=== PATIENT | male | born 1985 ===

== ENCOUNTER 2017-12-16 03:45 | Emergency (ER) | payer SELFPAY ==
[2017-12-16 04:08] VITALS: RESP 16
[2017-12-16] MEDS ORDERED: DiphenhydrAMINE 50 mg/ml Inj IVP STA (04:41)
[2017-12-16] MEDS ORDERED: DiphenhydrAMINE 50 mg/ml Inj ONE (05:05)
[2017-12-16 05:28] LABS: BASO % 0.4 % (0.0-2.0); EOS # 0.1 K/uL (0.0-0.7); EOS % 1.3 % (0.0-4.0); HEMOGLOBIN 15.3 g/dL (12.0-18.0); LYMPH # 1.8 K/uL (1.0-4.3); LYMPH % 30.1 % (20.0-40.0); MEAN CELL VOLUME 88.6 fl (80.0-94.0); MEAN CORPUSCULAR HGB CONC 33.9 g/dL (33.0-37.0); MEAN PLATELET VOLUME 8.7 fl (7.2-11.7); MONO # 0.3 K/uL (0.0-0.8); MONO % 5.5 % (0.0-10.0); NEUT # 3.7 K/uL (1.8-7.0); NEUT % 62.7 % (50.0-75.0); NRBC % 0.1 % (0.0-0.0); RBC 5.09 Mil/uL (4.40-5.90); RED CELL DISTRIBUTION WIDTH 13.8 % (11.5-14.5); WHITE BLOOD COUNT 5.9 K/uL (4.8-10.8)
--- NOTE | 2017-12-16 05:38 | ED PDOC ---
HPI: Allergic Reaction Time Seen by Provider: 12/16/17 03:51 Chief Complaint (Nursing): Palpitations Chief Complaint (Provider): Allergic Reaction History Per: Patient History/Exam Limitations: no limitations Onset/Duration Of Symptoms: Days (x1) Possible Cause: Unknown. denies: Medication, Food Associated Symptoms: Swelling Additional Complaint(s): 32 year old male presents to ED with complaints of right sided facial swelling x1 day and has no past medical history. Denies taking any new medications or exposure to new foods or lotions. (+) SOB. (-) fever or chest pain. PCP: [facility] Past Medical History Reviewed: Historical Data, Nursing Documentation, Vital Signs Vital Signs: Last Vital Signs Temp 98.4 F 12/16/17 04:04 Pulse 71 12/16/17 04:04 Resp 16 12/16/17 04:04 BP 130/76 12/16/17 04:04 Pulse Ox 100 12/16/17 04:04 - Medical History PMH: No Chronic Diseases - Surgical History Surgical History: No Surg Hx - Family History Family History: States: Unknown Family Hx - Allergies Allergies/Adverse Reactions: Allergies Allergy/AdvReac Type Severity Reaction Status Date / Time No Known Allergies Allergy Verified 12/16/17 04:03 Review of Systems ROS Statement: Except As Marked, All Systems Reviewed And Found Negative Constitutional: Negative for: Fever Cardiovascular: Negative for: Chest Pain Respiratory: Negative for: Shortness of Breath Skin: Positive for: Other (right sided facial swelling) Physical Exam - Reviewed Nursing Documentation Reviewed: Yes Vital Signs Reviewed: Yes - Physical Exam Appears: Positive for: Non-toxic, No Acute Distress Skin: Positive for: Normal Color (no cellulitis), Warm, Dry. Negative for: Rash Eye Exam: Positive for: EOMI, PERRL, Periorbital swelling (swelling around right eye) ENT: Negative for: Normal ENT Inspection (swelling to right side of tongue and right lip) Cardiovascular/Chest: Positive for: Regular Rate, Rhythm Respiratory: Positive for: Normal Breath Sounds. Negative for: Respiratory Distress Gastrointestinal/Abdominal: Positive for: Soft. Negative for: Tenderness Neurologic/Psych: Positive for: Alert, Oriented - Laboratory Results Result Diagrams: 12/16/17 05:25 12/16/17 05:25 - ECG O2 Sat by Pulse Oximetry: 100 (RA) Pulse Ox Interpretation: Normal Disposition - Clinical Impression Clinical Impression: Allergic reaction - Patient ED Disposition Is Patient to be Admitted: No Counseled Patient/Family Regarding: Studies Performed, Diagnosis, Need For Followup - Disposition Referrals: [facility] [Outside] Disposition: Routine/Home Disposition Time: 06:00 Condition: IMPROVED Additional Instructions: follow up with your primary doctor in 1-2 days return to the ED with any worsening or concerning symptoms Instructions: Adverse Drug Reactions, Adult (DC) Forms: [employer] (Lao) Print Language: UZBEK Medical Decision Making Medical Decision Makin Initial impression: facial swelling likely allergic reaction Initial plan: * EKG * Labs * Trop I * Benadryl 50mg IVP * Re-eval 0640 Upon re-evaluation, patient notes feeling better after benadryl Labs reviewed: no clinically significant abnormalities. Patient will be discharged home with instructions to take Benadryl PRN. Patient will follow up with PCP tomorrow. Scribe Attestation: Documented by Edith Valdes acting as a scribe for Neris Renee MD. Scribe Attestation: All medical record entries made by the Scribe were at my direction and personally dictated by me. I have reviewed the chart and agree that the record accurately reflects my personal performance of the history, physical exam, medical decision making, and the department course for this patient. I have also personally directed, reviewed, and agree with the discharge instructions and disposition.
[2017-12-16 05:44] LABS: ALB/GLOB RATIO 1.2 (1.0-2.1); ALT/SGPT 50 U/L (21-72); AST/SGOT 28 U/L (17-59); BLOOD UREA NITROGEN 13 mg/dl (9-20); GFR AFRICAN-AMERICAN > 60; GFR NON-AFRICAN AMERICAN > 60
[2017-12-16 07:00] VITALS: BP 115/69; PULSE 62; TEMP 98
--- NOTE | 2017-12-16 09:00 | CARD ---
APPROVED REPORT EKG Measurement Heart [id number] 136P50 [id number] <Conclusion> Normal sinus rhythm Normal ECG
[2017-12-19 18:42] VITALS: O2SAT 100
== END 2017-12-16 07:00 | disposition home or self-care (01) ==
LOC: H.ER 03:45
DX: T78.40XA Allergy, unspecified, initial encounter (principal)
CPT/HCPCS: 80053; 84484; 85025; 93005; 96374; 99283; J1200

== ENCOUNTER 2017-12-19 23:54 | Emergency (ER) | payer SELFPAY ==
[2017-12-20 00:05] VITALS: BP 127/81; PULSE 75; RESP 20; TEMP 98.1; O2SAT 99
[2017-12-20] MEDS ORDERED: Albuterol-Ipratrop 3 mg / 0.5 (3 ml) UD INH STA (01:49)
[2017-12-20] MEDS ORDERED: Albuterol-Ipratrop 3 mg / 0.5 (3 ml) UD ONE (02:12)
--- NOTE | 2017-12-20 06:23 | ED PDOC ---
HPI: SOB/CHF/COPD Time Seen by Provider: 12/20/17 01:43 Chief Complaint (Nursing): Chest Pain Chief Complaint (Provider): Shortness of Breath History Per: Patient History/Exam Limitations: no limitations Onset/Duration Of Symptoms: Days (x2) Current Symptoms Are (Timing): Still Present Initiating Event: Possible Allergic Reaction Additional Complaint(s): 32 year old male presents to ED with complaints of SOB and cough x2 days and has no past medical history. Patient was seen in the ED 48 horus ago and discharged with the diagnosis of an allergic reaction. Patient notes ongoing chest tightness with dry cough. (-) rash, facial swelling, nausea, vomiting, diarrhea, or fever. PCP: [facility] Past Medical History Reviewed: Historical Data, Nursing Documentation, Vital Signs Vital Signs: Last Vital Signs Temp 98.1 F 12/20/17 00:01 Pulse 75 12/20/17 00:01 Resp 20 12/20/17 00:01 BP 127/81 12/20/17 00:01 Pulse Ox 99 12/20/17 00:01 - Medical History PMH: No Chronic Diseases - Surgical History Surgical History: No Surg Hx - Family History Family History: States: Unknown Family Hx - Social History Current smoker - smoking cessation education provided: No Ex-Smoker (has not smoked in the last 12 months): No Alcohol: None Drugs: Denies - Home Medications Home Medications: Ambulatory Orders Medication Instructions Recorded Albuterol HFA [Ventolin HFA 90 1 - 2 puff IH Q6 PRN #1 inhaler 12/20/17 mcg/actuation (8 g)] predniSONE [predniSONE Tab] 60 mg PO QAM #12 tab 12/20/17 - Allergies Allergies/Adverse Reactions: Allergies Allergy/AdvReac Type Severity Reaction Status Date / Time No Known Allergies Allergy Verified 12/20/17 00:02 Curb-65 Severity Score - CURB-65 Severity Score Respiratory Rate greater than/equal to 30: No Systolic BP <90 or Diastolic BP less than/equal 60mmHg: No Age >64: No Curb-65 Score: 0 Percentage 30-day mortality: 0.6% Review of Systems ROS Statement: Except As Marked, All Systems Reviewed And Found Negative Constitutional: Negative for: Fever Respiratory: Positive for: Cough, Shortness of Breath Gastrointestinal: Negative for: Nausea, Vomiting, Diarrhea Skin: Negative for: Rash Physical Exam - Reviewed Nursing Documentation Reviewed: Yes Vital Signs Reviewed: Yes - Physical Exam Appears: Positive for: Non-toxic, No Acute Distress Skin: Positive for: Normal Color, Warm, Dry Eye Exam: Positive for: Normal appearance ENT: Positive for: Normal ENT Inspection Cardiovascular/Chest: Positive for: Regular Rate, Rhythm. Negative for: Murmur Respiratory: Positive for: Decreased Breath Sounds (decreased air entry). Negative for: Respiratory Distress Gastrointestinal/Abdominal: Positive for: Soft. Negative for: Tenderness Extremity: Positive for: Normal ROM. Negative for: Deformity Neurologic/Psych: Positive for: Alert, Oriented. Negative for: Motor/Sensory Deficits - ECG O2 Sat by Pulse Oximetry: 99 (RA) Pulse Ox Interpretation: Normal Medical Decision Making Medical Decision Makin Initial impression: bronchitis Initial plan: * EKG * CXR * Duonebs 3mL INH * Prednisone 60mg PO * Peak flow pre/post Tx * Re-eval 0300 CXR: NAD Upon re-evaluation, patient feels much better. Patient is stable for discharge home. Scribe Attestation: Documented by Edith Valdes acting as a scribe Todd Roque MD. Scribe Attestation: All medical record entries made by the Scribe were at my direction and personally dictated by me. I have reviewed the chart and agree that the record accurately reflects my personal performance of the history, physical exam, medical decision making, and the department course for this patient. I have also personally directed, reviewed, and agree with the discharge instructions and disposition. Disposition - Clinical Impression Clinical Impression: Bronchitis - Disposition Disposition: Routine/Home Disposition Time: 03:00 Condition: STABLE Prescriptions: Albuterol HFA [Ventolin HFA 90 mcg/actuation (8 g)] 1 - 2 puff IH Q6 PRN #1 inhaler PRN Reason: Shortness Of Breath predniSONE [predniSONE Tab] 60 mg PO QAM #12 tab Instructions: Acute Bronchitis Forms: [employer] ([place]) Print Language: ERITREAN
--- NOTE | 2017-12-20 09:57 | RAD ---
HISTORY: SOB COMPARISON: No prior. TECHNIQUE: Chest PA and lateral FINDINGS: LUNGS: Poor inspiration with low lung volumes, crowded bronchovascular markings and mild bibasilar atelectasis left greater than right PLEURA: No significant pleural effusion identified. No pneumothorax apparent. CARDIOVASCULAR: Normal. OSSEOUS STRUCTURES: No significant abnormalities. VISUALIZED UPPER ABDOMEN: Normal. OTHER FINDINGS: None. IMPRESSION: Poor inspiration with low lung volumes, crowded bronchovascular markings and mild bibasilar atelectasis left greater than right
--- NOTE | 2017-12-20 09:57 | CARD ---
APPROVED REPORT EKG Measurement Heart [id number] VA 134P46 [id number] <Conclusion> Normal sinus rhythm Normal ECG
== END 2017-12-20 03:05 | disposition home or self-care (01) ==
LOC: H.ER 23:54
DX: J40 Bronchitis, not specified as acute or chronic (principal)